=== PATIENT | male | born 1980 | race Caucasian/White ===

== ENCOUNTER 2017-09-24 18:47 | Inpatient (IN) | payer MEDICAID, OTHER ==
[2017-09-24] MEDS ORDERED: ALBUTEROL 0.083% (NEB) 2.5 MG/3 ML AMP HHN (18:51)
[2017-09-24] MEDS ORDERED: IPRATROPIUM (NEB) 0.5 MG/2.5 ML AMP HHN (19:00)
[2017-09-24] MEDS: predniSONE 20 MG TAB PO (19:03)
[2017-09-24 19:23] LABS: ADD MAN DIFF? NO
[2017-09-24 19:26] LABS: WHITE BLOOD COUNT 10.6 10^3/ul (4.8-10.8)
[2017-09-24 19:26] LABS: ABNORMAL IP MESSAGE 1; BASOPHILS % 0.3 % (0.0-2.0); EOSINOPHILS % 0.1 % (0.0-7.0); HEMATOCRIT 36.6 % (42.0-52.0); HEMOGLOBIN 12.4 g/dl (14.0-18.0); LYMPHOCYTES # 0.5 10^3/ul (0.8-2.9); LYMPHOCYTES % 4.4 % (15.0-51.0); MEAN CORPUSCULAR HEMOGLOBIN 29.7 pg (29.0-33.0); MEAN CORPUSCULAR HGB CONC 33.9 g/dl (32.0-37.0); MEAN CORPUSCULAR VOLUME 87.6 fl (82.0-101.0); MEAN PLATELET VOLUME 11.2 fl (7.4-10.4); MONOCYTE # 0.2 10^3/ul (0.3-0.9); MONOCYTES % 1.8 % (0.0-11.0); NEUTROPHIL # 9.9 10^3/ul (1.6-7.5); NEUTROPHILS % 92.8 % (39.0-77.0); PLATELET COUNT 204 10^3/UL (140-415); POSITIVE DIFF @See below; RED BLOOD COUNT 4.18 10^6/ul (4.70-6.10); RED CELL DISTRIBUTION WIDTH 13.4 % (11.5-14.5)
[2017-09-24 19:30] LABS: AADO2 Arterial 86.8 mmHg (7.0-24.0); Allen Test ACCEPTAB; Arterial Base Excess -0.6 mmol/L (-3.0-3); Arterial Blood Gas Oxygen Sat 93.1 mmHG (95.0-98.0); Arterial COHb 0.7 % (0.0-3.0); Arterial Fraction of Oxyhgb 92.4 % (93.0-99.0); Arterial HCO3 22.2 mmol/L (22.0-26.0); Arterial MetHb 0.1 % (0.0-1.5); Arterial Total Hemglobin 13.1 g/dl (12.0-18.0); Arterial pCO2 31.1 mmhg (35-45); MODE NASAL CANNULA; Site Right Radial
[2017-09-24] MEDS: ASPIRIN 325 MG TAB PO (19:39)
[2017-09-24 19:49] LABS: ANION GAP 13 (8-16); BLOOD UREA NITROGEN 16 mg/dl (7-20); CALCIUM 9.1 mg/dl (8.4-10.2); CARBON DIOXIDE 24 mmol/L (21-31); CHLORIDE 102 mmol/L (97-110); CREATININE 0.92 mg/dl (0.61-1.24); GLUCOSE 144 mg/dl (70-220); POTASSIUM 4.2 mmol/L (3.5-5.1); SODIUM 135 mmol/L (135-144)
[2017-09-24 20:05] LABS: B-TYPE NATRIURETIC PEPTIDE 69 PG/ML (0-125); TROPONIN-I < 0.010 ng/ml (0.000-0.120)
[2017-09-24] MEDS: SOD CHLORIDE 0.9% 500 ML IV (20:09)
[2017-09-24] MEDS: IOHEXOL 100 ML (20:29)
[2017-09-24] MEDS: SOD CHLORIDE 0.9% 100 ML (20:29)
[2017-09-25] MEDS ORDERED: ACETAMINOPHEN 325 MG TAB PO (00:30)
[2017-09-25] MEDS ORDERED: ONDANSETRON 4 MG INJ IV (00:30)
[2017-09-25] MEDS ORDERED: DOCUSATE SODIUM 100 MG CAP PO (00:30)
[2017-09-25] MEDS ORDERED: NACL 0.9% 3 ML SYG IV (00:30)
[2017-09-25] MEDS: ALBUTEROL/IPRATROPIUM (NEB) 3 ML AMP HHN ×6 (01:21→20:04)
[2017-09-25 01:39] LABS: CREATINE KINASE 56 IU/L (23-200)
[2017-09-25 01:53] LABS: CK INDEX 0.4; CK-MB < 0.22 ng/ml (0.0-2.4); TROPONIN-I < 0.010 ng/ml (0.000-0.120)
[2017-09-25] MEDS: PIPER-TAZO 3.375 GM IV (PMX) 100 ML IVPB ×2 (06:43→12:06)
[2017-09-25] MEDS: PANTOPRAZOLE (EC) 40 MG TAB PO (06:43)
[2017-09-25 07:03] LABS: ADD MAN DIFF? NO
[2017-09-25 07:10] LABS: WHITE BLOOD COUNT 5.8 10^3/ul (4.8-10.8)
[2017-09-25 07:10] LABS: HEMATOCRIT 35.6 % (42.0-52.0); HEMOGLOBIN 12.1 g/dl (14.0-18.0); MEAN CORPUSCULAR HEMOGLOBIN 30.4 pg (29.0-33.0); MEAN CORPUSCULAR VOLUME 89.4 fl (82.0-101.0); MEAN PLATELET VOLUME 11.7 fl (7.4-10.4); MONOCYTE # 0.1 10^3/ul (0.3-0.9); MONOCYTES % 1.6 % (0.0-11.0); NEUTROPHIL # 4.7 10^3/ul (1.6-7.5); NEUTROPHILS % 80.9 % (39.0-77.0); PLATELET COUNT 194 10^3/UL (140-415); RED BLOOD COUNT 3.98 10^6/ul (4.70-6.10); RED CELL DISTRIBUTION WIDTH 13.7 % (11.5-14.5)
[2017-09-25 07:28] LABS: CREATINE KINASE 73 IU/L (23-200)
[2017-09-25 07:31] LABS: ALANINE AMINOTRANSFERASE 122 IU/L (13-69); ALBUMIN 3.8 g/dl (3.3-4.9); ALBUMIN/GLOBULIN RATIO 1.08; ALKALINE PHOSPHATASE 132 IU/L (42-121); ANION GAP 14 (8-16); ASPARTATE AMINO TRANSFERASE 121 IU/L (15-46); BILIRUBIN,INDIRECT 0.3 mg/dl (0-1.1); BILIRUBIN,TOTAL 0.3 mg/dl (0.2-1.3); BLOOD UREA NITROGEN 17 mg/dl (7-20); CALCIUM 9.6 mg/dl (8.4-10.2); CARBON DIOXIDE 26 mmol/L (21-31); CHLORIDE 106 mmol/L (97-110); CHOL/HDL RATIO 5.2 RATIO; CHOLESTEROL 142 mg/dl (100-200); CREATININE 0.62 mg/dl (0.61-1.24); GLUCOSE 157 mg/dl (70-220); HDL CHOLESTEROL 27 mg/dl (28-63); LDL CHOLESTEROL,CALCULATED 102 mg/dl; MAGNESIUM 2.4 mg/dl (1.7-2.5); POTASSIUM 4.5 mmol/L (3.5-5.1); SODIUM 141 mmol/L (135-144); TOTAL PROTEIN 7.3 g/dl (6.1-8.1); TRIGLYCERIDES 65 mg/dl (0-149)
[2017-09-25 07:36] LABS: CK INDEX 0.5; CK-MB 0.36 ng/ml (0.0-2.4); TROPONIN-I < 0.010 ng/ml (0.000-0.120)
[2017-09-25 08:01] LABS: THYROID STIMULATING HORMONE 0.664 MIU/L (0.465-4.680)
[2017-09-25 08:04] LABS: HEMOGLOBIN A1C 5.8 % (0-5.9)
[2017-09-25 08:12] LABS: ERYTHROCYTE SEDIMENTATION RATE 120 mm/Hr (0-15)
[2017-09-25 08:25] LABS: HIV 1&2 ANTIBODY REACTIVE (NEGATIVE)
[2017-09-25] MEDS: METHYLPREDNISOLONE 40 MG INJ IV ×2 (09:24→20:23)
[2017-09-25] MEDS ORDERED: VANCOMYCIN IV PER PHARMACY XX (11:30)
[2017-09-25 12:51] LABS: C-REACTIVE PROTEIN 15.3 mg/dl (0.0-0.9)
[2017-09-25] MEDS: VANCOMYCIN 2 GM in SOD CHLORIDE 0.9% 500 ML IVPB (13:43)
[2017-09-25 15:00] LABS: RAPID PLASMA REAGIN NONREACTIVE (NR)
[2017-09-25] MEDS: DEXTROSE IVPB ×2 (18:30→22:00)
[2017-09-25] MEDS: SULFAMETHOXAZOLE IVPB ×2 (18:30→22:00)
[2017-09-25] MEDS: TRIMETHOPRIM IVPB ×2 (18:30→22:00)
[2017-09-25] MEDS ORDERED: VANCOMYCIN 1.5 GM in SOD CHLORIDE 0.9% 250 ML IVPB (21:00)
[2017-09-25 23:07] LABS: SITE Right Upper Forearm
[2017-09-25 23:08] LABS: TIME 2250
[2017-09-26] MEDS: ALBUTEROL/IPRATROPIUM (NEB) 3 ML AMP HHN ×6 (00:25→20:01)
[2017-09-26] MEDS: PANTOPRAZOLE (EC) 40 MG TAB PO (05:07)
[2017-09-26] MEDS: SULFAMETHOXAZOLE IVPB ×3 (05:07→21:01)
[2017-09-26] MEDS: TRIMETHOPRIM IVPB ×3 (05:07→21:01)
[2017-09-26] MEDS: DEXTROSE IVPB ×3 (05:07→21:01)
[2017-09-26] MEDS: predniSONE 20 MG TAB PO (08:27)
[2017-09-26] MEDS: METHYLPREDNISOLONE 40 MG INJ IV ×2 (08:27→21:01)
[2017-09-26] MEDS: BISACODYL (EC) 5 MG TAB PO (23:59)
[2017-09-26] MEDS: GUAIFENESIN/DM 5ML CUP PO (23:59)
[2017-09-27] MEDS: ALBUTEROL/IPRATROPIUM (NEB) 3 ML AMP HHN ×6 (01:37→20:59)
[2017-09-27] MEDS: PANTOPRAZOLE (EC) 40 MG TAB PO (05:52)
[2017-09-27] MEDS: TRIMETHOPRIM IVPB ×3 (05:52→22:16)
[2017-09-27] MEDS: SULFAMETHOXAZOLE IVPB ×3 (05:52→22:16)
[2017-09-27] MEDS: DEXTROSE IVPB ×3 (05:52→22:16)
[2017-09-27 06:30] LABS: ADD MAN DIFF? NO
[2017-09-27 06:33] LABS: WHITE BLOOD COUNT 12.6 10^3/ul (4.8-10.8)
[2017-09-27 06:33] LABS: BASOPHILS % 0.1 % (0.0-2.0); HEMATOCRIT 32.2 % (42.0-52.0); HEMOGLOBIN 10.9 g/dl (14.0-18.0); LYMPHOCYTES # 0.6 10^3/ul (0.8-2.9); LYMPHOCYTES % 4.8 % (15.0-51.0); MEAN CORPUSCULAR HEMOGLOBIN 29.3 pg (29.0-33.0); MEAN CORPUSCULAR HGB CONC 33.9 g/dl (32.0-37.0); MEAN CORPUSCULAR VOLUME 86.6 fl (82.0-101.0); MEAN PLATELET VOLUME 11.9 fl (7.4-10.4); MONOCYTE # 0.3 10^3/ul (0.3-0.9); MONOCYTES % 2.5 % (0.0-11.0); NEUTROPHIL # 11.6 10^3/ul (1.6-7.5); NEUTROPHILS % 91.6 % (39.0-77.0); PLATELET COUNT 185 10^3/UL (140-415); RED BLOOD COUNT 3.72 10^6/ul (4.70-6.10); RED CELL DISTRIBUTION WIDTH 13.7 % (11.5-14.5)
[2017-09-27 07:16] LABS: ALANINE AMINOTRANSFERASE 137 IU/L (13-69); ALBUMIN 3.3 g/dl (3.3-4.9); ALBUMIN/GLOBULIN RATIO 0.97; ALKALINE PHOSPHATASE 97 IU/L (42-121); ANION GAP 14 (8-16); ASPARTATE AMINO TRANSFERASE 71 IU/L (15-46); BILIRUBIN,INDIRECT 0.2 mg/dl (0-1.1); BILIRUBIN,TOTAL 0.2 mg/dl (0.2-1.3); BLOOD UREA NITROGEN 10 mg/dl (7-20); CARBON DIOXIDE 24 mmol/L (21-31); CHLORIDE 106 mmol/L (97-110); CREATININE 0.68 mg/dl (0.61-1.24); GLUCOSE 229 mg/dl (70-220); POTASSIUM 4.2 mmol/L (3.5-5.1); SODIUM 140 mmol/L (135-144); TOTAL PROTEIN 6.7 g/dl (6.1-8.1)
[2017-09-27] MEDS: FLUCONAZOLE 100 MG TAB PO (08:40)
[2017-09-27] MEDS: NYSTATIN SUSP 5 ML CUP PO ×4 (08:41→22:17)
[2017-09-27] MEDS: AZITHROMYCIN 250 MG TAB PO (08:41)
[2017-09-27] MEDS: METHYLPREDNISOLONE 40 MG INJ IV ×2 (08:41→22:17)
[2017-09-27 22:06] LABS: FORTY EIGHT HOUR READING 0 mm (0-9)
[2017-09-28] MEDS: ALBUTEROL/IPRATROPIUM (NEB) 3 ML AMP HHN ×6 (00:24→20:57)
[2017-09-28] MEDS: SULFAMETHOXAZOLE IVPB ×3 (06:06→22:23)
[2017-09-28] MEDS: TRIMETHOPRIM IVPB ×3 (06:06→22:23)
[2017-09-28] MEDS: PANTOPRAZOLE (EC) 40 MG TAB PO (06:06)
[2017-09-28] MEDS: DEXTROSE IVPB ×3 (06:06→22:23)
[2017-09-28] MEDS: NYSTATIN SUSP 5 ML CUP PO ×4 (08:47→22:23)
[2017-09-28] MEDS: FLUCONAZOLE 100 MG TAB PO (08:47)
[2017-09-28] MEDS: AZITHROMYCIN 250 MG TAB PO (08:47)
[2017-09-28] MEDS: METHYLPREDNISOLONE 40 MG INJ IV ×2 (08:47→22:23)
[2017-09-28 21:31] LABS: SEVENTY TWO HOUR READING 0 mm (0-9)
[2017-09-29] MEDS: ALBUTEROL/IPRATROPIUM (NEB) 3 ML AMP HHN ×6 (00:55→21:22)
[2017-09-29] MEDS: TRIMETHOPRIM IVPB ×2 (06:33→14:00)
[2017-09-29] MEDS: DEXTROSE IVPB ×2 (06:33→14:00)
[2017-09-29] MEDS: SULFAMETHOXAZOLE IVPB ×2 (06:33→14:00)
[2017-09-29] MEDS: PANTOPRAZOLE (EC) 40 MG TAB PO (06:34)
[2017-09-29] MEDS: METHYLPREDNISOLONE 40 MG INJ IV ×2 (08:17→20:51)
[2017-09-29] MEDS: NYSTATIN SUSP 5 ML CUP PO ×4 (08:17→20:51)
[2017-09-29] MEDS: AZITHROMYCIN 250 MG TAB PO (08:17)
[2017-09-29] MEDS: FLUCONAZOLE 100 MG TAB PO (08:17)
[2017-09-29 14:05] LABS: PNEUM JIROVECCI SRC SPUTUM; PNEUMOCYSTIS JIROVECCI DFA NOT DETECTED
[2017-09-29 14:06] LABS: PROLACTIN 12.5 ng/mL (2.0-18.0)
[2017-09-29 14:07] LABS: LYMPHOCYTE - % CD4 (HELPER) 3 % (30-61); LYMPHOCYTE - % CD4 (HELPER) 5 % (30-61); LYMPHOCYTE - %CD8 (SUPPRESSOR) 45 % (12-42); LYMPHOCYTE - %CD8 (SUPPRESSOR) 62 % (12-42); LYMPHOCYTE - ABSOLUTE 475 cells/uL (850-3900); LYMPHOCYTE - ABSOLUTE 979 cells/uL (850-3900); LYMPHOCYTE - ABSOLUTE CD4 22 cells/uL (490-1740); LYMPHOCYTE - ABSOLUTE CD4 31 cells/uL (490-1740); LYMPHOCYTE - ABSOLUTE CD8 214 cells/uL (180-1170); LYMPHOCYTE - ABSOLUTE CD8 609 cells/uL (180-1170); LYMPHOCYTE - CD4/CD8 RATIO 0.05 (0.86-5.00); MYCOPLASMA PNEUMONIAE AB (IGG) 1.46; NIL 0.03 IU/mL; QUANTIFERON(R)-TB GOLD NEGATIVE (NEGATIVE)
[2017-09-29] MEDS: LEVOFLOXACIN 500 MG TAB PO (19:01)
[2017-09-29] MEDS: DOXYCYCLINE 100 MG in SOD CHLORIDE 0.9% 250 ML IVPB (21:04)
[2017-09-30] MEDS: ALBUTEROL/IPRATROPIUM (NEB) 3 ML AMP HHN ×5 (01:30→20:32)
[2017-09-30] MEDS: LEVOFLOXACIN 500 MG TAB PO (05:51)
[2017-09-30] MEDS: PANTOPRAZOLE (EC) 40 MG TAB PO (05:51)
[2017-09-30] MEDS: TRIMETHOPRIM/SULFAMETHOX (DS) TAB PO (08:14)
[2017-09-30] MEDS: FLUCONAZOLE 100 MG TAB PO (08:14)
[2017-09-30] MEDS: NYSTATIN SUSP 5 ML CUP PO ×4 (08:14→21:08)
[2017-09-30] MEDS: METHYLPREDNISOLONE 40 MG INJ IV ×2 (08:14→21:09)
[2017-09-30] MEDS: DOXYCYCLINE 100 MG in SOD CHLORIDE 0.9% 250 ML IVPB ×2 (08:15→21:12)
[2017-09-30] MEDS: AZITHROMYCIN 600 MG TAB PO (10:06)
[2017-09-30] MEDS: GUAIFENESIN/DM 5ML CUP PO (21:11)
[2017-10-01] MEDS: GUAIFENESIN/DM 5ML CUP PO ×3 (01:16→21:21)
[2017-10-01] MEDS: ALBUTEROL/IPRATROPIUM (NEB) 3 ML AMP HHN ×4 (01:57→20:08)
[2017-10-01] MEDS: LEVOFLOXACIN 500 MG TAB PO (06:51)
[2017-10-01] MEDS: PANTOPRAZOLE (EC) 40 MG TAB PO (06:51)
[2017-10-01 07:02] LABS: ADD MAN DIFF? NO
[2017-10-01 07:11] LABS: ABNORMAL IP MESSAGE 1; BASOPHILS % 0.2 % (0.0-2.0); EOSINOPHILS % 0.1 % (0.0-7.0); HEMATOCRIT 37.6 % (42.0-52.0); HEMOGLOBIN 12.8 g/dl (14.0-18.0); IMMATURE GRANS #M 0.47 10^3/ul; IMMATURE GRANS % (M) 4.1 %; LYMPHOCYTES # 0.6 10^3/ul (0.8-2.9); LYMPHOCYTES % 5.2 % (15.0-51.0); MEAN CORPUSCULAR HEMOGLOBIN 29.2 pg (29.0-33.0); MEAN CORPUSCULAR VOLUME 85.8 fl (82.0-101.0); MEAN PLATELET VOLUME 12.2 fl (7.4-10.4); MONOCYTE # 0.3 10^3/ul (0.3-0.9); NEUTROPHILS % 87.4 % (39.0-77.0); PLATELET COUNT 192 10^3/UL (140-415); POSITIVE DIFF @See below; RED BLOOD COUNT 4.38 10^6/ul (4.70-6.10); RED CELL DISTRIBUTION WIDTH 13.8 % (11.5-14.5)
[2017-10-01 07:11] LABS: WHITE BLOOD COUNT 11.4 10^3/ul (4.8-10.8)
[2017-10-01 07:38] LABS: ANION GAP 17 (8-16); BLOOD UREA NITROGEN 19 mg/dl (7-20); CALCIUM 9.3 mg/dl (8.4-10.2); CARBON DIOXIDE 25 mmol/L (21-31); CHLORIDE 100 mmol/L (97-110); CREATININE 0.75 mg/dl (0.61-1.24); GLUCOSE 202 mg/dl (70-220); MAGNESIUM 2.1 mg/dl (1.7-2.5); POTASSIUM 4.9 mmol/L (3.5-5.1); SODIUM 137 mmol/L (135-144)
[2017-10-01] MEDS: TRIMETHOPRIM/SULFAMETHOX (DS) TAB PO (08:48)
[2017-10-01] MEDS: FLUCONAZOLE 100 MG TAB PO (08:48)
[2017-10-01] MEDS: NYSTATIN SUSP 5 ML CUP PO ×4 (08:48→21:21)
[2017-10-01] MEDS: METHYLPREDNISOLONE 40 MG INJ IV (08:48)
[2017-10-01] MEDS: DOXYCYCLINE 100 MG in SOD CHLORIDE 0.9% 250 ML IVPB ×2 (08:49→22:00)
[2017-10-01] MEDS: predniSONE 20 MG TAB PO (12:54)
[2017-10-01] MEDS: BUDESONIDE (NEB) 0.5MG/2ML AMP HHN ×2 (14:00→20:08)
[2017-10-02] MEDS: ALBUTEROL/IPRATROPIUM (NEB) 3 ML AMP HHN ×3 (01:14→13:25)
[2017-10-02] MEDS: PANTOPRAZOLE (EC) 40 MG TAB PO (05:35)
[2017-10-02] MEDS: LEVOFLOXACIN 500 MG TAB PO (05:35)
[2017-10-02] MEDS: GUAIFENESIN/DM 5ML CUP PO (05:37)
[2017-10-02] MEDS: BUDESONIDE (NEB) 0.5MG/2ML AMP HHN (08:11)
[2017-10-02] MEDS: NYSTATIN SUSP 5 ML CUP PO ×2 (09:36→13:10)
[2017-10-02] MEDS: FLUCONAZOLE 100 MG TAB PO (09:36)
[2017-10-02] MEDS: TRIMETHOPRIM/SULFAMETHOX (DS) TAB PO (09:37)
[2017-10-02] MEDS: predniSONE 20 MG TAB PO (09:37)
[2017-10-02] MEDS: DOXYCYCLINE 100 MG in SOD CHLORIDE 0.9% 250 ML IVPB (10:21)
[2017-10-02] MEDS: FLUTICASONE/VILANTEROL 200-25 INH DEVICE INH (12:52)
== END 2017-10-02 16:19 | disposition home or self-care (01) | DRG 974 ==
LOC: TEL 09-25 09:58 → E/R 18:47 → TEL 21:25
DX: B20 Human immunodeficiency virus [HIV] disease (principal); J96.01 Acute respiratory failure with hypoxia; B37.0 Candidal stomatitis; J15.7 Pneumonia due to Mycoplasma pneumoniae; E66.9 Obesity, unspecified; Z68.32 Body mass index [BMI] 32.0-32.9, adult; Z98.82 Breast implant status
CPT/HCPCS: 36415; 36600; 71045; 71275; 80048; 80053; 80061; 82550; 82553; 82803; 82962; 83036; 83735; 83880; 84100; 84146; 84443; 84484; 85025; 85651; 86140; 86360; 86403; 86480; 86580; 86592; 86701; 86703; 86738; 87015; 87116; 87281; 87536; 93005; 93306; 94640; 94664; 99291-25